=== PATIENT | female | born 1965 | race Caucasian/White ===

== ENCOUNTER 2017-11-08 19:52 | Emergency (ER) | payer BC, OTHER ==
[2017-11-08] MEDS ORDERED: Proparacaine 0.5% Ophth Soln 15 ML Bottle EYEBOTH STA (20:12)
[2017-11-08] MEDS ORDERED: Proparacaine 0.5% Ophth Soln 15 ML Bottle ONE (20:14)
--- NOTE | 2017-11-08 20:40 | EDM.PDOC ---
ED HPI GENERAL MEDICAL PROBLEM - General Chief Complaint: Eye Problems Stated Complaint: PAIN RT EYE Time Seen by Provider: 11/08/17 20:08 Source of Information: Reports: Patient History Limitations: Reports: No Limitations - History of Present Illness INITIAL COMMENTS - FREE TEXT/NARRATIVE: HISTORY AND PHYSICAL: History of present illness: Patient is a 52-year-old female who presents to the emergency room with complaints of right eye pain. States approximately 2 hours ago she was wearing her contact lenses and felt some irritation. She thought that her contact had ripped and she proceeded to remove her contacts at home. Her eye continued to be watery, irritated with the sensation of foreign body. With her corrective glasses her vision is 20/20 in both eyes. She denies any visual changes, photophobia, headache, nausea or vomiting. Review of systems: As per history of present illness and below otherwise all systems reviewed and negative. Past medical history: As per history of present illness and as reviewed below otherwise noncontributory. Surgical history: As per history of present illness and as reviewed below otherwise noncontributory. Social history: No reported history of drug or alcohol abuse. Family history: As per history of present illness and as reviewed below otherwise noncontributory. Physical exam: HEENT: Atraumatic, normocephalic, pupils reactive bilaterally. Negative for conjunctival pallor or scleral icterus, scleral injection to the right eye, clear drainage/watery drainage noted. Oral mucous membranes moist, throat clear , neck supple, nontender, trachea midline. Lungs: Clear to auscultation, breath sounds equal bilaterally, chest nontender. Heart: S1S2, regular, negative for clicks, rubs, or JVD. Abdomen: Soft, nondistended, nontender. Negative for masses or hepatosplenomegaly. Negative for costovertebral tenderness. Pelvis: Stable nontender. Genitourinary: Deferred. Rectal: Deferred. Extremities: Atraumatic, negative for cords or calf pain. Neurovascular unremarkable. Neuro: Awake, alert, oriented. Cranial nerves II through XII unremarkable. Cerebellum unremarkable. Motor and sensory unremarkable throughout. Exam nonfocal. Proparacaine eyedrops were used to anesthetize the eye for the eye exam. Fluorescein was used to assess for abrasion. There are small punctate at the dye would uptake in the 9 o'clock position, but this is diffuse. No obvious abrasion noted. The eye itself is not beefy red. She has no photophobia. No tenderness during the assessment. Dr. Rosen was consulted on this case. He states that I can give the patient his personal cell phone number. And she may call him tomorrow if she is not feeling improved. He recommends to prescribe Vigamox. I did relay this information to the patient. I instructed her not to use her contacts for the next 3-4 days. When she does use contacts please get a new pair. She voices understanding and is agreeable to plan of care. She denies any further questions at this time. Diagnostics: [] Therapeutics: Proparacaine, fluorescein, Eye exam Impression: Contact lens injury, corneal irritation Plan: 1. Vigamox has been prescribed for you. Please take one drop in the affected eye 3 times a day 7 days. 2. Please avoid using her contact lenses for the next 3-4 days. When you do use contacts, please obtain a new pair. 3. You may follow-up with Dr. Rosen, pharmacy student at [facility]. He is aware of your case. His phone number is . Please contact him if you feel that you are not improving or symptoms worsen. 4. Please return to the ED as needed and as discussed. Definitive disposition and diagnosis as appropriate pending reevaluation and review of above. Onset: Today Duration: Hour(s): Location: Reports: Face - Related Data Allergies Allergy/AdvReac Type Severity Reaction Status Date / Time No Known Allergies Allergy Verified 11/08/17 20:08 Home Meds: Home Meds . [No Known Home Meds] 11/08/17 [History] ED ROS GENERAL - Review of Systems Review Of Systems: ROS reveals no pertinent complaints other than HPI. ED EXAM GENERAL W FULL EYE - Physical Exam Exam: See Below (See dictation) Course - Vital Signs Last Recorded V/S: Last Vital Signs Temp 98.1 F 11/08/17 20:04 Pulse 54 L 11/08/17 20:04 Resp 17 11/08/17 20:04 BP 141/78 H 11/08/17 20:04 Pulse Ox 98 11/08/17 20:04 - Orders/Labs/Meds Meds: Medications Discontinued Medications Generic Name Dose Route Start Last Admin Trade Name Freq PRN Reason Stop Dose Admin Proparacaine HCl 2 ml 11/08/17 20:12 11/08/17 20:17 Proparacaine 0.5% Ophth Soln EYEBOTH 11/08/17 20:13 2 drop NOW STA Administration Proparacaine HCl Confirm 11/08/17 20:14 11/08/17 20:17 Proparacaine 0.5% Ophth Soln Administered 11/08/17 20:15 Not Given Dose 15 ml .ROUTE .STK-MED ONE Departure - Departure Time of Disposition: 20:40 Disposition: Home, Self-Care 01 Clinical Impression: Corneal injury due to contact lens Qualifiers: Laterality: right Qualified Code(s): H18.821 - Corneal disorder due to contact lens, right eye - Discharge Information Referrals: PCP,None [Primary Care Provider] - Additional Instructions: My general discharge The following information is given to patients seen in the emergency department who are being discharged to home. This information is to outline your options for follow-up care. We provide all patients seen in our emergency department with a follow-up referral. The need for follow-up, as well as the timing and circumstances, are variable depending upon the specifics of your emergency department visit. If you don't have a primary care physician on staff, we will provide you with a referral. We always advise you to contact your personal physician following an emergency department visit to inform them of the circumstance of the visit and for follow-up with them and/or the need for any referrals to a consulting specialist. The emergency department will also refer you to a specialist when appropriate. This referral assures that you have the opportunity for follow-up care with a specialist. All of these measure are taken in an effort to provide you with optimal care, which includes your follow-up. Under all circumstances we always encourage you to contact your private physician who remains a resource for coordinating your care. When calling for follow-up care, please make the office aware that this follow-up is from your recent emergency room visit. If for any reason you are refused follow-up, please contact the [facility] Emergency Department at and asked to speak to the emergency department charge nurse. [address] [address] 1. Vigamox has been prescribed for you. Please take one drop in the affected eye 3 times a day 7 days. 2. Please avoid using your contact lenses for the next 3-4 days. When you do use contacts, please obtain a new pair. 3. You may follow-up with Dr. Rosen, pharmacy student at [facility]. He is aware of your case. His personal cell phone number is . Please contact him if you feel that you are not improving or symptoms worsen. 4. Please return to the ED as needed and as discussed.
== END 2017-11-08 20:50 | disposition home or self-care (01) ==
LOC: MW.ED 19:52
DX: H18.821 Corneal disorder due to contact lens, right eye (principal)
CPT/HCPCS: 99283